=== PATIENT | male | born 1940 | race Caucasian/White ===

== ENCOUNTER → 2018-02-04 13:43 | Outpatient (CLI) | payer SELFPAY ==
[2018-02-04 14:01] LABS: Basophils % 0.5 % (0.1-2.0); Eosinophils # 0.2 K/mm3 (0.0-0.4); Eosinophils % 3.9 % (0.1-12.0); Hematocrit 41.7 % (42.0-52.0); Hemoglobin 12.8 g/dL (14.1-18.0); Lymphocytes # 1.9 K/mm3 (0.7-4.5); Mean Corpuscular HGB Conc 30.7 g/dL (31.8-35.4); Mean Corpuscular Hemoglobin 26.8 pg (27.0-31.2); Mean Corpuscular Volume 87.2 fl (80-94); Monocytes # 0.4 K/mm3 (0.1-1.0); Monocytes % 7.5 % (1.7-9.3); Neutrophils # 3.1 K/mm3 (1.8-7.8); Neutrophils % 54.1 % (37.0-80.0); Platelet Count 186 K/mm3 (142-424); Red Blood Count 4.78 M/mm3 (4.60-6.20); Red Cell Distribution Width 13.9 % (11.5-17.5); White Blood Count 5.7 K/mm3 (4.8-10.8)
[2018-02-04 15:46] LABS: Alanine Aminotransferase 37 U/L (12-78); Albumin Level 3.5 gm/dL (3.4-5.0); Albumin/Globulin Ratio 1.1 (1.1-1.8); Alkaline Phosphatase 92 U/L (46-116); Anion Gap 9.8 mEq/L (5-15); Aspartate Amino Transferase 27 U/L (15-37); Bilirubin,Total 0.3 mg/dL (0.2-1.0); Blood Urea Nitrogen 18 mg/dL (7-18); Carbon Dioxide 28 mmol/L (21.0-32.0); Chloride 105 mmol/L (98-107); Creatinine,Serum 1.15 mg/dL (0.70-1.30); Estimated Glomerular Filt Rate 62 ml/min (>60); GFR (African American) 75 ML/MIN (>60); Globulin 3.2 gm/dl (1.3-3.2); Glucose 106 mg/dL (74-106); Potassium 4.8 mmoL/L (3.5-5.1); Sodium 138 mmol/L (136-145); Total Protein,Serum 6.7 gm/dL (6.4-8.2)
== END ==
PROVIDERS: Visit Provider Nurse Practitioner Family
DX: M25.50 Pain in unspecified joint (principal)
CPT/HCPCS: 36415; 80053; 85025

== ENCOUNTER → 2018-05-24 14:00 | Outpatient (CLI) | payer SELFPAY ==
--- NOTE | 2018-05-24 14:09 | XR_ITS ---
XR chest 2V HISTORY: ITS.REASON: COUGH ORDERING PHYSICIAN: Tatum Granados PATIENT AGE: 77 years Technique: PA and lateral chest COMPARISON: None FINDINGS: Lungs are well expanded and clear with nothing definitely acute. The cardiomediastinal silhouette and pulmonary vascularity appear satisfactory There are calcified node seen at the mediastinum reflecting granulomatous disease The lungs are clear without infiltrates, suspicious nodules, or pleural effusions. No acute bony abnormalities. IMPRESSION: Lungs clear. Nothing acute.
== END ==
PROVIDERS: PCP Nurse Practitioner Family; Visit Provider Nurse Practitioner Family
DX: R05 Cough (principal)
CPT/HCPCS: 71046

== ENCOUNTER → 2021-12-13 12:21 | Outpatient (CLI) | payer SELFPAY ==
--- NOTE | 2021-12-13 12:56 | MR_ITS ---
FINAL REPORT CLINICAL HISTORY: VERTIGO vertigo dizziness x 2 weeks blurred vision in right eye some memory loss FINDINGS: Multiplanar MR imaging of the brain was performed without contrast. There is mild age-appropriate atrophy. There are scattered foci of increased T2 signal in the cerebral white matter that have a nonspecific appearance but likely represent moderate chronic ischemic/gliotic changes. There is no evidence of intracranial hemorrhage or mass. No abnormal ventricular dilatation is identified. No abnormal extra-axial fluid collection is seen. There are multiple small foci of restricted diffusion involving the bilateral cerebellum and right middle cerebellar peduncle measuring up to 5 mm. In addition, there is a 5 mm focus of restricted diffusion in the left occipital lobe consistent with multiple small acute infarcts. Normal major vessel vascular flow voids are seen. IMPRESSION: Multiple small acute infarcts as detailed above. Ordering physician, Jo Ann Richardson was notified of findings on 12/13/2021 at 4:07 p.m. Reviewed, Interpreted and Dictated by Earl Corbin III, MD Transcribed by Keyla Manuel Authenticated and [facility]
--- NOTE | 2021-12-13 13:04 | XR_ITS ---
FINAL REPORT CLINICAL HISTORY: R/O METAL FOR MRI CLEARANCE pt had metal piece of carbon table saw hit him x 20 years ago no recent mri since FINDINGS: ORBITS Four views were obtained. There is a foreign body in the region of the right mandible. No other foreign body is identified. IMPRESSION: Foreign body in the region of the right mandible. Reviewed, Interpreted and Dictated by Earl Corbin III, MD Transcribed by Rhonda Mosqueda Authenticated and [facility]
== END ==
PROVIDERS: PCP Nurse Practitioner Family; Visit Provider Nurse Practitioner Family
DX: R42 Dizziness and giddiness (principal); H05.53 Retained (old) foreign body following penetrating wound of bilateral orbits
CPT/HCPCS: 70200; 70551